=== PATIENT | male | born 1945 | race Caucasian/White ===

== ENCOUNTER 2018-11-05 12:32 | Emergency (ER) | payer MEDICAID, MEDICARE ==
[~2018-11-05] VITALS: Ht 167.6 cm; Wt 76.0 kg
[~2018-11-05 12:32] MED LIST: AMLO5TAB88 PO; ASPI-1393 PO; ATOR80TA PO; CARV6.2548 PO; DIFL5DRO BOTHEYE; FINA5TAB11 PO; HYDR-4135 PO; INSLAN SQ; INSU100C6; ISOS20TA57 PO; OFLO5DRO OP; SUCR500T PO; TAMS-11 PO; TRAM50TA PO
[2018-11-05 13:22] VITALS: BP 150/56
[2018-11-05 14:25] LABS: HEMOGLOBIN. 9.7 g/dL (14.0-18.0); MEAN CORPUSCULAR HEMOGLOBIN 32.5 pg (28.0-32.0); MEAN CORPUSCULAR VOLUME 97.1 fL (80.0-94.0); MEAN PLATELET VOLUME 8.1 fl (7.4-10.4); PLATELET 204 x1000/uL (130-400); RED BLOOD CELL COUNT 2.99 mill/uL (4.7-6.1); RED CELL DISTRIBUTION WIDTH 17.9 % (11.6-14.6)
[2018-11-05 14:28] LABS: CHLORIDE 111 mEq/L (98-107)
[2018-11-05 14:30] LABS: PROTHROMBIN TIME 10.5 sec (9.6-11.0)
[2018-11-05] MEDS ORDERED: ASPIRIN 325MG TABLET PO ONE (15:15)
[2018-11-05 15:16] LABS: PLATELET ESTIMATE NORMAL
== END 2018-11-05 16:08 | disposition left against medical advice (07) ==
LOC: ER 12:32 → CANBEDREQ 17:36
DX: G45.9 Transient cerebral ischemic attack, unspecified (principal); I12.0 Hypertensive chronic kidney disease with stage 5 chronic kidney disease or end stage renal disease; N28.9 Disorder of kidney and ureter, unspecified; N18.6 End stage renal disease; Z99.2 Dependence on renal dialysis; E11.22 Type 2 diabetes mellitus with diabetic chronic kidney disease; Z79.4 Long term (current) use of insulin; Z79.82 Long term (current) use of aspirin
CPT/HCPCS: 36415; 71045; 83880; 84484; 93005; 99284

== ENCOUNTER 2018-12-02 09:11 | Emergency (ER) | payer MEDICARE, MEDICAID ==
[~2018-12-02] VITALS: Ht 172.7 cm; Wt 86.0 kg
[2018-12-02] MEDS ORDERED: DEXTROSE 50% WATER 50ML SYRINGE IV ONE ×2 (09:21→09:30)
[2018-12-02 09:50] LABS: HEMATOCRIT. 32.5 % (42.0-52.0); HEMOGLOBIN. 10.7 g/dL (14.0-18.0); MEAN CORPUSCULAR HEMOGLOBIN 32.6 pg (28.0-32.0); MEAN CORPUSCULAR VOLUME 98.9 fL (80.0-94.0); MEAN PLATELET VOLUME 7.9 fl (7.4-10.4); PLATELET 309 x1000/uL (130-400); RED BLOOD CELL COUNT 3.29 mill/uL (4.7-6.1); RED CELL DISTRIBUTION WIDTH 17.5 % (11.6-14.6)
[2018-12-02 09:57] LABS: CHLORIDE 109 mEq/L (98-107)
[2018-12-02 10:22] LABS: PLATELET ESTIMATE NORMAL
[2018-12-02] MEDS ORDERED: ASPIRIN 325MG EC TABLET PO ONE (11:00)
[2018-12-02] MEDS ORDERED: MAGNESIUM/ALUMINUM HYDROXIDE/SIMETHICONE 30ML UDC PO PRN (14:30)
[2018-12-02] MEDS ORDERED: ACETAMINOPHEN 650MG SUPP PR PRN (14:30)
[2018-12-02] MEDS ORDERED: DEXTROSE 50% WATER 50ML SYRINGE IV PRN (14:30)
[2018-12-02] MEDS ORDERED: GUAIFENESIN 200MG/10ML SUGAR FREE UDC PO PRN (14:30)
[2018-12-02] MEDS ORDERED: CLONIDINE 0.1MG TABLET PO PRN (14:30)
[2018-12-02] MEDS ORDERED: ENOXAPARIN 40MG/0.4ML SYR SUBCUT SCH (14:30)
[2018-12-02] MEDS ORDERED: ONDANSETRON HCL 4MG/2ML INJ IV PRN (14:30)
[2018-12-02] MEDS ORDERED: ACETAMINOPHEN 325MG TABLET PO PRN (14:30)
[2018-12-02] MEDS ORDERED: DIPHENHYDRAMINE 50MG/ML VIAL IV PRN (14:30)
[2018-12-02] MEDS ORDERED: ACETAMINOPHEN 650MG/20.3ML UDC GT PRN (14:30)
[2018-12-02] MEDS ORDERED: IPRATROPIUM/ALBUTEROL 0.5-3(2.5)MG/3ML NEB INH PRN (14:30)
[2018-12-02] MEDS ORDERED: DOCUSATE SODIUM 100MG CAPSULE PO PRN (14:30)
[2018-12-02] MEDS ORDERED: NA PHOS,M-B/NA PHOS,DI-BA ENEMA 118ML PR PRN (14:30)
[2018-12-02 15:54] VITALS: BP 151/66
[2018-12-02] MEDS ORDERED: BLOOD SUGAR DIAGNOSTIC STRIP TEST SCH (17:00)
[2018-12-02] MEDS ORDERED: INSULIN LISPRO 100 UNITS/ML SUBCUT SCH (18:20)
[2018-12-02] MEDS ORDERED: SODIUM CHLORIDE 0.9% INJ 3ML FLUSH IVF SCH (22:00)
== END 2018-12-02 15:58 | disposition left against medical advice (07) ==
LOC: ER 09:11 → EDBEDREQTM 14:02 → EDBEDREQ 14:02 → ENRESERV 15:28 → CANRESERV 15:28 → ER 15:58 → CANBEDREQ 16:08
DX: E11.649 Type 2 diabetes mellitus with hypoglycemia without coma (principal); R55 Syncope and collapse; N28.9 Disorder of kidney and ureter, unspecified; I48.91 Unspecified atrial fibrillation; I12.0 Hypertensive chronic kidney disease with stage 5 chronic kidney disease or end stage renal disease; E11.22 Type 2 diabetes mellitus with diabetic chronic kidney disease; N18.6 End stage renal disease; Z99.2 Dependence on renal dialysis; Z79.899 Other long term (current) drug therapy; Z79.4 Long term (current) use of insulin; Z79.82 Long term (current) use of aspirin
CPT/HCPCS: 36415; 71045; 82962; 84484; 93005; 96374; 99284

== ENCOUNTER 2021-04-09 16:10 | Emergency (ER) | payer MEDICARE, MEDICAID ==
[~2021-04-09] VITALS: Ht 170.2 cm; Wt 100.0 kg
[~2021-04-09 16:10] MED LIST changes: -ASPI-1393 PO; +ASPI-1497 PO
[2021-04-09 16:53] VITALS: BP 138/54
[2021-04-09] MEDS ORDERED: SULF1TAB48 MT (16:59)
== END 2021-04-09 17:21 | disposition home or self-care (01) ==
LOC: ER 16:10
DX: L03.213 Periorbital cellulitis (principal); I48.91 Unspecified atrial fibrillation; I12.0 Hypertensive chronic kidney disease with stage 5 chronic kidney disease or end stage renal disease; E11.22 Type 2 diabetes mellitus with diabetic chronic kidney disease; N18.6 End stage renal disease; Z99.2 Dependence on renal dialysis; Z79.4 Long term (current) use of insulin; Z94.0 Kidney transplant status; Z95.0 Presence of cardiac pacemaker; Z91.040 Latex allergy status
CPT/HCPCS: 99283

== ENCOUNTER 2021-04-29 11:13 | Inpatient (IN) | payer MEDICARE, MEDICAID ==
[~2021-04-29] VITALS: Ht 167.6 cm; Wt 94.8 kg
[~2021-04-29 11:13] MED LIST changes: +SULF1TAB48 MT
[2021-04-29 12:19] LABS: BASOPHILS % 0.4 % (0.0-2.0); EOSINOPHILS % 0.9 % (0.0-5.0); HEMATOCRIT. 27.5 % (42.0-52.0); HEMOGLOBIN. 9.1 g/dL (14.0-18.0); LYMPHOCYTES % 7.1 % (20.0-50.0); MEAN CORPUSCULAR HEMOGLOBIN 32.6 pg (28.0-32.0); MEAN CORPUSCULAR VOLUME 98.6 fL (80.0-94.0); MEAN PLATELET VOLUME 9.6 fl (7.4-10.4); MONOCYTES % 7.7 % (2.0-8.0); NEUTROPHILS % 83.9 % (40.0-76.0); PLATELET 118 x1000/uL (130-400); RED BLOOD CELL COUNT 2.79 mill/uL (4.7-6.1); RED CELL DISTRIBUTION WIDTH 15.6 % (11.6-14.6)
[2021-04-29 12:25] LABS: CHLORIDE 108 mEq/L (98-107)
[2021-04-29 16:09] LABS: CLARITY URINE CLEAR (CLEAR); COLOR URINE YELLOW (YELLOW); KETONES URINE NEGATIVE (NEGATIVE); LEUKOCYTE ESTERASE URINE NEGATIVE (NEGATIVE); NITRITE URINE NEGATIVE (NEGATIVE); OCCULT BLOOD URINE NEGATIVE (NEGATIVE); PROTEIN URINE TRACE (NEGATIVE); SPECIFIC GRAVITY URINE 1.015 (1.005-1.030); UROBILINOGEN URINE 0.2 E.U./dL (0.2-1.0)
[2021-04-29] MEDS ORDERED: FUROSEMIDE 40MG/4ML VIAL IVP ONE (16:15)
[2021-04-29] MEDS ORDERED: ACETAMINOPHEN 325MG TABLET PO PRN (18:15)
[2021-04-29] MEDS ORDERED: HYDRALAZINE 20MG/ML VIAL IV PRN (18:15)
[2021-04-29] MEDS ORDERED: DIPHENHYDRAMINE 50MG/ML VIAL IV PRN (18:15)
[2021-04-29] MEDS ORDERED: ONDANSETRON HCL 4MG/2ML INJ IV PRN (18:15)
[2021-04-29] MEDS ORDERED: CLONIDINE 0.1MG TABLET PO PRN (18:15)
[2021-04-29] MEDS ORDERED: LORAZEPAM 2MG/ML CPJ IV PRN (18:15)
[2021-04-29] MEDS ORDERED: GUAIFENESIN 200MG/10ML SUGAR FREE UDC PO PRN (18:15)
[2021-04-29] MEDS ORDERED: IPRATROPIUM/ALBUTEROL 0.5-3(2.5)MG/3ML NEB HHN PRN (18:15)
[2021-04-29] MEDS ORDERED: MORPHINE SULFATE 2 MG/ML CPJ (NOT FOR IM USE) IV PRN (18:15)
[2021-04-29] MEDS ORDERED: DOCUSATE SODIUM 100MG CAPSULE PO PRN (18:15)
[2021-04-29] MEDS ORDERED: MAGNESIUM/ALUMINUM HYDROXIDE/SIMETHICONE 30ML UDC PO PRN (18:15)
[2021-04-29] MEDS ORDERED: HYDROCODONE/ACETAMINOPHEN 5/325MG TABLET PO PRN (18:15)
[2021-04-29] MEDS ORDERED: NALOXONE HCL 0.4MG/ML VIAL IV PRN (18:45)
[2021-04-29] MEDS ORDERED: ENOXAPARIN 30MG/0.3ML SYR SUBCUT SCH (21:00)
[2021-04-29] MEDS: SODIUM CHLORIDE 0.9% INJ 3ML FLUSH IVF SCH (22:02)
[2021-04-29 23:30] VITALS: BP 135/48
[2021-04-30 04:00] VITALS: BP 136/51
[2021-04-30] MEDS: SODIUM CHLORIDE 0.9% INJ 3ML FLUSH IVF SCH (05:29)
[2021-04-30 06:16] LABS: BASOPHILS % 0.6 % (0.0-2.0); EOSINOPHILS % 1.5 % (0.0-5.0); HEMATOCRIT. 26.2 % (42.0-52.0); HEMOGLOBIN. 8.7 g/dL (14.0-18.0); LYMPHOCYTES % 13.2 % (20.0-50.0); MEAN CORPUSCULAR HEMOGLOBIN 32.6 pg (28.0-32.0); MEAN CORPUSCULAR VOLUME 98.5 fL (80.0-94.0); MONOCYTES % 11.6 % (2.0-8.0); NEUTROPHILS % 73.1 % (40.0-76.0); PLATELET 118 x1000/uL (130-400); RED BLOOD CELL COUNT 2.66 mill/uL (4.7-6.1); RED CELL DISTRIBUTION WIDTH 15.5 % (11.6-14.6)
[2021-04-30 06:27] LABS: CHLORIDE 109 mEq/L (98-107)
[2021-04-30] MEDS ORDERED: PRED5TAB MT (08:08)
[2021-04-30] MEDS ORDERED: FUROSEMIDE 40MG/4ML VIAL IVP SCH (09:00)
[2021-04-30] MEDS ORDERED: FOLIC ACID/VITAMIN B COMP W-C TABLET PO SCH (09:00)
[2021-04-30] MEDS ORDERED: APIXABAN 5 MG TABLET PO SCH (09:00)
[2021-04-30] MEDS ORDERED: SODIUM BICARBONATE 650 MG TABLET PO SCH (09:00)
[2021-04-30] MEDS ORDERED: THIAMINE HCL 100MG TABLET PO SCH (09:00)
[2021-04-30] MEDS ORDERED: CARVEDILOL 6.25 MG TABLET PO SCH (09:00)
[2021-04-30] MEDS ORDERED: ISOSORBIDE MONONITRATE 30MG TABLET SR 24HR PO SCH (09:00)
[2021-04-30] MEDS ORDERED: PREDNISONE 5MG TABLET PO SCH (09:30)
[2021-04-30 10:23] LABS: T4 FREE 1.05 ng/dL (0.76-1.46)
[2021-04-30] MEDS ORDERED: HYDRALAZINE HCL 50MG TABLET PO SCH (14:00)
[2021-04-30] MEDS ORDERED: ATORVASTATIN CALCIUM 20MG TABLET PO SCH (21:00)
[2021-04-30] MEDS ORDERED: NIFEDIPINE XL 60MG TAB PO SCH (21:00)
[2021-05-01] MEDS ORDERED: TACROLIMUS 1MG CAPSULE PO SCH (09:30)
== END 2021-04-30 12:00 | disposition left against medical advice (07) | DRG 291 ==
LOC: ER 11:13 → 5WST 17:42 → EDBEDREQ 17:45 → EDBEDREQTM 17:45 → MICUSO 22:27 → 8WST 22:47
PROVIDERS: ADMIT Internal Medicine; ATTEND Internal Medicine
DX: I13.0 Hypertensive heart and chronic kidney disease with heart failure and stage 1 through stage 4 chronic kidney disease, or unspecified chronic kidney disease (principal); J96.00 Acute respiratory failure, unspecified whether with hypoxia or hypercapnia; I50.33 Acute on chronic diastolic (congestive) heart failure; T86.19 Other complication of kidney transplant; E44.1 Mild protein-calorie malnutrition; N17.9 Acute kidney failure, unspecified; Z20.822 Contact with and (suspected) exposure to COVID-19; D64.9 Anemia, unspecified; E87.5 Hyperkalemia; E78.5 Hyperlipidemia, unspecified; E11.22 Type 2 diabetes mellitus with diabetic chronic kidney disease; I48.91 Unspecified atrial fibrillation; R91.8 Other nonspecific abnormal finding of lung field; Z53.29 Procedure and treatment not carried out because of patient's decision for other reasons; Y83.0 Surgical operation with transplant of whole organ as the cause of abnormal reaction of the patient, or of later complication, without mention of misadventure at the time of the procedure; N18.9 Chronic kidney disease, unspecified; Z68.33 Body mass index [BMI] 33.0-33.9, adult; Y92.89 Other specified places as the place of occurrence of the external cause; Z91.041 Radiographic dye allergy status; Z91.040 Latex allergy status; Z79.899 Other long term (current) drug therapy; Z79.82 Long term (current) use of aspirin; Z95.0 Presence of cardiac pacemaker
CPT/HCPCS: 36415; 71045; 80053; 80061; 81003; 82962; 83036; 83880; 84439; 84443; 84484; 85025; 87426; 93005; 93306; 99285; J1650; J1940; J7512

== ENCOUNTER 2021-09-15 08:29 | Inpatient (IN) | payer MEDICARE, MEDICAID ==
[~2021-09-15] VITALS: Ht 167.6 cm; Wt 86.4 kg
[2021-09-15] VITALS (28 sets, daily range): BP systolic 94–128; BP diastolic 34–85
[~2021-09-15 08:29] MED LIST changes: +PRED5TAB MT
[2021-09-15] MEDS ORDERED: PROPOFOL 10MG/ML 100ML 100 ML IV ONE (08:45)
[2021-09-15] MEDS ORDERED: SUCCINYLCHOLINE CHLORIDE 200MG/10ML IV ONE (08:45)
[2021-09-15] MEDS ORDERED: FENTANYL CITRATE/PF 50MCG/ML 2ML VIAL IV ONE ×2 (08:45→09:15)
[2021-09-15] MEDS ORDERED: ETOMIDATE 2MG/ML 10ML VIAL IV ONE (08:45)
[2021-09-15 09:06] LABS: INR 1.3; PROTHROMBIN TIME 13.8 sec (9.6-11.0)
[2021-09-15 09:07] LABS: CHLORIDE 113 mEq/L (98-107)
[2021-09-15] MEDS ORDERED: MIDAZOLAM 100MG/100ML PMX 100 ML IV SCH ×2 (09:11→09:45)
[2021-09-15 09:15] LABS: HEMATOCRIT. 25.9 % (42.0-52.0); HEMOGLOBIN. 8.6 g/dL (14.0-18.0); MEAN CORPUSCULAR HEMOGLOBIN 31.9 pg (28.0-32.0); MEAN CORPUSCULAR VOLUME 96.3 fL (80.0-94.0); MEAN PLATELET VOLUME 8.2 fl (7.4-10.4); PLATELET 152 x1000/uL (130-400); RED BLOOD CELL COUNT 2.69 mill/uL (4.7-6.1); RED CELL DISTRIBUTION WIDTH 16.3 % (11.6-14.6)
[2021-09-15] MEDS ORDERED: MIDAZOLAM HCL 100 MG in DEXT 5% WATER 80 ML IV ONE (09:15)
[2021-09-15 09:16] LABS: ETHANOL BLOOD < 10 mg/dL
[2021-09-15] MEDS ORDERED: PIPERACILLIN/TAZ 3.375G PREMIX 50 ML IV ONE (09:30)
[2021-09-15] MEDS ORDERED: VANCOMYCIN 1G PREMIX 200 ML IV ONE (09:30)
[2021-09-15 09:44] LABS: PLATELET ESTIMATE NORMAL
[2021-09-15] MEDS ORDERED: SODIUM CHLORIDE 0.9% 1000ML BAG (SEPSIS BOLUS) IV ONE (09:45)
[2021-09-15 09:56] LABS: BG BASE EXCESS -10.1 mmol/L (-2.0-2.0); BG CARBOXYHEMOGLOBIN 0.3 % (0.5-1.5); BG DEOXYHEMOGLOBIN 1.3 % (0.0-5.0); BG FRACTION INSPIRED OXYGEN 100; BG HCO3 ACT 14.6 mmol/L (22.0-26.0); BG METHEMOGLOBIN 0.3 % (0.0-1.5); BG OXYGEN SATURATION 98.7 % (92.0-98.5); BG OXYHEMOGLOBIN 98.1 % (94.0-97.0); BG PCO2 27.8 mmHg (35.0-45.0); BG PH 7.337 (7.350-7.450); BG PO2 252.3 mmHg (75.0-100.0); BG SAMPLE SITE RIGHT BRACHIAL; BG TOTAL HEMOGLOBIN 9.1 g/dL (12.0-18.0); BG VENT MODE VENT - AC
[2021-09-15] MEDS ORDERED: PIPERACILLIN/TAZ 3.375G PREMIX 50 ML IV NR (10:15)
[2021-09-15] MEDS ORDERED: DEXTROSE 50% WATER 50ML SYRINGE IV PRN ×2 (10:30)
[2021-09-15] MEDS ORDERED: VANCOMYCIN 750MG PMX (XELLIA) 150 ML IV NR (10:30)
[2021-09-15] MEDS ORDERED: LIDOCAINE HCL 1% 20ML VIAL (Pyxis) INJ ONE (11:00)
[2021-09-15] MEDS ORDERED: CEFEPIME 1,000 MG in DEXTROSE 5% WATER 50 ML IV SCH (11:00)
[2021-09-15] MEDS ORDERED: METRONIDAZOLE 500 MG PREMIX 100 ML IV SCH (11:00)
[2021-09-15] MEDS ORDERED: PHENYLEPHRINE 50 MG in DEXT 5% WATER 245 ML IV PRN ×4 (11:15)
[2021-09-15] MEDS: PANTOPRAZOLE SODIUM 40 MG/VIAL IV SCH (12:07)
[2021-09-15] MEDS: DEXT 5%/0.45% NACL 1000ML 1,000 ML IV SCH (12:20)
[2021-09-15] MEDS ORDERED: ACETAMINOPHEN 650MG SUPP PR PRN (12:45)
[2021-09-15] MEDS ORDERED: ONDANSETRON HCL 4MG/2ML INJ IV PRN (12:45)
[2021-09-15] MEDS ORDERED: NOREPINEPHRINE 8MG/250ML PMX 250 ML IV PRN ×3 (13:30→13:45)
[2021-09-15] MEDS: IPRATROPIUM/ALBUTEROL 0.5-3(2.5)MG/3ML NEB HHN SCH ×2 (14:15→20:22)
[2021-09-15 15:43] LABS: CLARITY URINE TURBID (CLEAR); COLOR URINE ORANGE (YELLOW); KETONES URINE TRACE (NEGATIVE); LEUKOCYTE ESTERASE URINE 3+ (NEGATIVE); NITRITE URINE NEGATIVE (NEGATIVE); OCCULT BLOOD URINE 3+ (NEGATIVE); PH URINE 8.5 (4.5-8.0); PROTEIN URINE 3+ (NEGATIVE); SPECIFIC GRAVITY URINE 1.015 (1.005-1.030)
[2021-09-15 16:07] LABS: *AMPHETAMINES SCREEN URINE NEGATIVE (NEGATIVE); *BARBITURATES SCREEN URINE NEGATIVE (NEGATIVE); *BENZODIAZEPINES SCREEN URINE NEGATIVE (NEGATIVE); *COCAINE SCREEN URINE NEGATIVE (NEGATIVE); CANNABINOID URINE SCREEN NEGATIVE (NEGATIVE); METHADONE URINE SCREEN NEGATIVE (NEGATIVE); OPIATES URINE SCREEN NEGATIVE (NEGATIVE); PHENCYCLIDINE URINE SCREEN NEGATIVE (NEGATIVE)
[2021-09-15] MEDS ORDERED: NOREPINEPHRINE 8 MG in DEXTROSE 5% WATER 250 ML IV PRN (22:00)
[2021-09-15] MEDS: BLOOD SUGAR DIAGNOSTIC STRIP TEST SCH (23:15)
[2021-09-16] VITALS (96 sets, daily range): BP systolic 85–161; BP diastolic 26–107
[2021-09-16] MEDS: METRONIDAZOLE 500 MG PREMIX 100 ML IV SCH ×3 (00:16→23:34)
[2021-09-16] MEDS ORDERED: PHENYLEPHRINE 100 MG in DEXT 5% WATER 240 ML IV PRN (02:15)
[2021-09-16] MEDS: IPRATROPIUM/ALBUTEROL 0.5-3(2.5)MG/3ML NEB HHN SCH ×4 (02:19→19:57)
[2021-09-16] MEDS: DEXT 5%/0.45% NACL 1000ML 1,000 ML IV SCH (05:43)
[2021-09-16 06:38] LABS: HEMATOCRIT. 29.6 % (42.0-52.0); HEMOGLOBIN. 9.7 g/dL (14.0-18.0); MEAN CORPUSCULAR VOLUME 97.3 fL (80.0-94.0); MEAN PLATELET VOLUME 8.9 fl (7.4-10.4); PLATELET 108 x1000/uL (130-400); RED BLOOD CELL COUNT 3.04 mill/uL (4.7-6.1); RED CELL DISTRIBUTION WIDTH 16.1 % (11.6-14.6)
[2021-09-16 07:08] LABS: CHLORIDE 110 mEq/L (98-107)
[2021-09-16 07:16] LABS: PHOSPHORUS 4.9 mg/dL (2.5-4.9)
[2021-09-16 08:21] LABS: BG BASE EXCESS -11.5 mmol/L (-2.0-2.0); BG CARBOXYHEMOGLOBIN 0.3 % (0.5-1.5); BG DEOXYHEMOGLOBIN 1.9 % (0.0-5.0); BG FRACTION INSPIRED OXYGEN 50; BG HCO3 ACT 12.8 mmol/L (22.0-26.0); BG METHEMOGLOBIN 0.1 % (0.0-1.5); BG OXYGEN SATURATION 98.1 % (92.0-98.5); BG OXYHEMOGLOBIN 97.7 % (94.0-97.0); BG PH 7.328 (7.350-7.450); BG PO2 139.1 mmHg (75.0-100.0); BG SAMPLE SITE RIGHT BRACHIAL; BG TOTAL HEMOGLOBIN 11.1 g/dL (12.0-18.0); BG VENT MODE VENT - AC
[2021-09-16 08:44] LABS: PLATELET ESTIMATE SLIGHTL
[2021-09-16] MEDS: TAMSULOSIN HCL 0.4MG SR CAPSULE PO SCH (09:27)
[2021-09-16] MEDS: PANTOPRAZOLE SODIUM 40 MG/VIAL IV SCH (09:27)
[2021-09-16] MEDS ORDERED: SODIUM BICARBONATE 8.4% 1 MEQ/ML 50ML SYR IV NR (09:45)
[2021-09-16] MEDS: BLOOD SUGAR DIAGNOSTIC STRIP TEST SCH ×3 (11:00→18:00)
[2021-09-16] MEDS: CEFEPIME 1,000 MG in DEXTROSE 5% WATER 50 ML IV SCH (11:23)
[2021-09-16] MEDS: SODIUM BICARBONATE 100 MEQ in DEXTROSE 5% WATER 1,000 ML IV SCH (11:23)
[2021-09-16] MEDS: MIDODRINE HCL 5MG TABLET PO SCH ×2 (13:00→17:00)
[2021-09-16] MEDS ORDERED: DEXTROSE 50% WATER 50ML SYRINGE IV PRN ×2 (13:30→16:00)
[2021-09-16] MEDS ORDERED: VANCOMYCIN 500 MG in DEXT 5% WATER 100 ML IV NR (15:00)
[2021-09-16] MEDS ORDERED: INSULIN LISPRO 100 UNITS/ML SUBCUT SCH (17:00)
[2021-09-16] MEDS: INSULIN LISPRO 100 UNITS/ML SUBCUT SCH (18:12)
[2021-09-16] MEDS: VANCOMYCIN 1000MG/20ML ORAL SOLN PO SCH (18:12)
[2021-09-16] MEDS ORDERED: PROPOFOL 10MG/ML 100ML 100 ML IV PRN (20:15)
[2021-09-16] MEDS ORDERED: EPOETIN ALFA-EPBX 10,000 UNIT/ML VIAL SUBCUT NR (21:00)
[2021-09-16] MEDS: FINASTERIDE 5MG TABLET NG SCH (22:25)
[2021-09-17] VITALS (43 sets, daily range): BP systolic 103–174; BP diastolic 31–123
[2021-09-17] MEDS: BLOOD SUGAR DIAGNOSTIC STRIP TEST SCH ×4 (00:14→17:20)
[2021-09-17] MEDS: VANCOMYCIN 1000MG/20ML ORAL SOLN PO SCH ×4 (01:13→17:20)
[2021-09-17] MEDS: IPRATROPIUM/ALBUTEROL 0.5-3(2.5)MG/3ML NEB HHN SCH ×4 (01:14→20:39)
[2021-09-17 06:25] LABS: HEMATOCRIT. 25.9 % (42.0-52.0); HEMOGLOBIN. 8.8 g/dL (14.0-18.0); MEAN CORPUSCULAR HEMOGLOBIN 32.3 pg (28.0-32.0); MEAN CORPUSCULAR VOLUME 95.5 fL (80.0-94.0); MEAN PLATELET VOLUME 9.5 fl (7.4-10.4); PLATELET 96 x1000/uL (130-400); RED BLOOD CELL COUNT 2.71 mill/uL (4.7-6.1); RED CELL DISTRIBUTION WIDTH 16.1 % (11.6-14.6)
[2021-09-17] MEDS: INSULIN LISPRO 100 UNITS/ML SUBCUT SCH ×4 (06:47→17:21)
[2021-09-17 07:02] LABS: PHOSPHORUS 4.5 mg/dL (2.5-4.9)
[2021-09-17 07:57] LABS: PLATELET ESTIMATE DECREASED
[2021-09-17 09:10] LABS: BG BASE EXCESS -4.6 mmol/L (-2.0-2.0); BG CARBOXYHEMOGLOBIN 0.3 % (0.5-1.5); BG DEOXYHEMOGLOBIN 6.3 % (0.0-5.0); BG FRACTION INSPIRED OXYGEN 30; BG HCO3 ACT 18.1 mmol/L (22.0-26.0); BG METHEMOGLOBIN 0.1 % (0.0-1.5); BG OXYGEN SATURATION 93.7 % (92.0-98.5); BG OXYHEMOGLOBIN 93.3 % (94.0-97.0); BG PCO2 25.4 mmHg (35.0-45.0); BG PO2 68.5 mmHg (75.0-100.0); BG SAMPLE SITE RIGHT RADIAL; BG TOTAL HEMOGLOBIN 8.9 g/dL (12.0-18.0); BG VENT MODE VENT - AC
[2021-09-17] MEDS: PANTOPRAZOLE SODIUM 40 MG/VIAL IV SCH (09:11)
[2021-09-17] MEDS: TAMSULOSIN HCL 0.4MG SR CAPSULE PO SCH (09:11)
[2021-09-17] MEDS: MIDODRINE HCL 5MG TABLET PO SCH ×3 (09:11→17:20)
[2021-09-17] MEDS: SODIUM BICARBONATE 100 MEQ in DEXTROSE 5% WATER 1,000 ML IV SCH (11:43)
[2021-09-17] MEDS: CEFEPIME 1,000 MG in DEXTROSE 5% WATER 50 ML IV SCH (11:49)
[2021-09-17] MEDS ORDERED: VANCOMYCIN 1GM PMX (XELLIA) 200 ML IV NR (12:30)
[2021-09-17] MEDS: METRONIDAZOLE 500 MG PREMIX 100 ML IV SCH (12:51)
[2021-09-17] MEDS: ASPIRIN 81MG TABLET PO SCH (13:41)
[2021-09-17] MEDS ORDERED: POTASSIUM CHLORIDE 20MEQ/PACKET PO ONE (21:00)
[2021-09-17] MEDS ORDERED: KCL 20MEQ/100ML PREMIX 100 ML IV NR (21:00)
[2021-09-17] MEDS: SODIUM CHLORIDE 0.9% 1,000 ML IV SCH (21:12)
[2021-09-17] MEDS: FINASTERIDE 5MG TABLET NG SCH (21:12)
[2021-09-17] MEDS: HYDRALAZINE 20MG/ML VIAL IV PRN (21:12)
[2021-09-18] VITALS (29 sets, daily range): BP systolic 132–181; BP diastolic 37–117
[2021-09-18] MEDS: BLOOD SUGAR DIAGNOSTIC STRIP TEST SCH ×5 (00:18→23:22)
[2021-09-18] MEDS: METRONIDAZOLE 500 MG PREMIX 100 ML IV SCH ×3 (00:28→23:22)
[2021-09-18] MEDS: VANCOMYCIN 1000MG/20ML ORAL SOLN PO SCH ×5 (00:28→23:22)
[2021-09-18] MEDS: INSULIN LISPRO 100 UNITS/ML SUBCUT SCH ×5 (00:29→23:34)
[2021-09-18] MEDS: IPRATROPIUM/ALBUTEROL 0.5-3(2.5)MG/3ML NEB HHN SCH ×4 (01:45→20:46)
[2021-09-18] MEDS: HYDRALAZINE 20MG/ML VIAL IV PRN ×3 (04:26→22:47)
[2021-09-18 05:21] LABS: HEMATOCRIT. 27.7 % (42.0-52.0); HEMOGLOBIN. 9.3 g/dL (14.0-18.0); MEAN CORPUSCULAR VOLUME 95.1 fL (80.0-94.0); MEAN PLATELET VOLUME 9.5 fl (7.4-10.4); PLATELET 93 x1000/uL (130-400); RED BLOOD CELL COUNT 2.91 mill/uL (4.7-6.1); RED CELL DISTRIBUTION WIDTH 16.3 % (11.6-14.6)
[2021-09-18 06:15] LABS: PHOSPHORUS 3.4 mg/dL (2.5-4.9)
[2021-09-18 07:35] LABS: BG BASE EXCESS -3.9 mmol/L (-2.0-2.0); BG DEOXYHEMOGLOBIN 2.2 % (0.0-5.0); BG HCO3 ACT 19.2 mmol/L (22.0-26.0); BG OXYGEN SATURATION 97.8 % (92.0-98.5); BG OXYHEMOGLOBIN 97.8 % (94.0-97.0); BG PH 7.453 (7.350-7.450); BG PO2 117.6 mmHg (75.0-100.0); BG SAMPLE SITE RIGHT RADIAL; BG TOTAL HEMOGLOBIN 9.7 g/dL (12.0-18.0); BG VENT MODE VENT - SIMV
[2021-09-18] MEDS: TAMSULOSIN HCL 0.4MG SR CAPSULE PO SCH (09:01)
[2021-09-18] MEDS: PANTOPRAZOLE SODIUM 40 MG/VIAL IV SCH (09:01)
[2021-09-18] MEDS: ASPIRIN 81MG TABLET PO SCH (09:01)
[2021-09-18] MEDS: MIDODRINE HCL 5MG TABLET PO SCH ×3 (09:02→17:00)
[2021-09-18 10:12] LABS: PLATELET ESTIMATE DECREASED
[2021-09-18] MEDS: CEFEPIME 1,000 MG in DEXTROSE 5% WATER 50 ML IV SCH (11:23)
[2021-09-18] MEDS ORDERED: VANCOMYCIN 1GM PMX (XELLIA) 200 ML IV NR (13:00)
[2021-09-18] MEDS: PREDNISONE 5MG TABLET PO SCH (13:16)
[2021-09-18] MEDS: TACROLIMUS 1MG/PACKET PO SCH ×2 (13:16→21:23)
[2021-09-18] MEDS: SODIUM CHLORIDE 0.9% 1,000 ML IV SCH ×2 (16:30→19:00)
[2021-09-18] MEDS: FINASTERIDE 5MG TABLET NG SCH (21:23)
[2021-09-19] VITALS (42 sets, daily range): BP systolic 125–180; BP diastolic 48–72
[2021-09-19] MEDS: IPRATROPIUM/ALBUTEROL 0.5-3(2.5)MG/3ML NEB HHN SCH ×4 (01:46→20:44)
[2021-09-19 05:43] LABS: HEMATOCRIT. 27.9 % (42.0-52.0); HEMOGLOBIN. 9.4 g/dL (14.0-18.0); MEAN CORPUSCULAR HEMOGLOBIN 31.9 pg (28.0-32.0); MEAN CORPUSCULAR VOLUME 94.6 fL (80.0-94.0); MEAN PLATELET VOLUME 9.9 fl (7.4-10.4); PLATELET 88 x1000/uL (130-400); RED BLOOD CELL COUNT 2.95 mill/uL (4.7-6.1); RED CELL DISTRIBUTION WIDTH 16.2 % (11.6-14.6)
[2021-09-19 06:08] LABS: PHOSPHORUS 2.7 mg/dL (2.5-4.9)
[2021-09-19] MEDS: BLOOD SUGAR DIAGNOSTIC STRIP TEST SCH ×3 (06:25→18:56)
[2021-09-19] MEDS: HYDRALAZINE 20MG/ML VIAL IV PRN ×3 (06:30→17:35)
[2021-09-19] MEDS: VANCOMYCIN 1000MG/20ML ORAL SOLN PO SCH ×3 (06:31→18:50)
[2021-09-19] MEDS: INSULIN LISPRO 100 UNITS/ML SUBCUT SCH ×3 (06:32→18:56)
[2021-09-19 07:48] LABS: PLATELET ESTIMATE DECREASED
[2021-09-19] MEDS: TAMSULOSIN HCL 0.4MG SR CAPSULE PO SCH (08:53)
[2021-09-19] MEDS: PANTOPRAZOLE SODIUM 40 MG/VIAL IV SCH (08:53)
[2021-09-19] MEDS: ASPIRIN 81MG TABLET PO SCH (08:53)
[2021-09-19] MEDS: MIDODRINE HCL 5MG TABLET PO SCH ×3 (08:53→17:35)
[2021-09-19] MEDS: PREDNISONE 5MG TABLET PO SCH (08:55)
[2021-09-19] MEDS: TACROLIMUS 1MG/PACKET PO SCH ×2 (08:55→21:10)
[2021-09-19] MEDS: CEFEPIME 1,000 MG in DEXTROSE 5% WATER 50 ML IV SCH (11:33)
[2021-09-19] MEDS: SODIUM CHLORIDE 0.9% 1,000 ML IV SCH (12:17)
[2021-09-19] MEDS: METRONIDAZOLE 500 MG PREMIX 100 ML IV SCH (12:18)
[2021-09-19] MEDS ORDERED: MIDAZOLAM HCL 2 MG/2 ML VIAL IV NR ×2 (13:45→14:00)
[2021-09-19] MEDS ORDERED: FENTANYL CITRATE/PF 50MCG/ML 2ML VIAL IV NR ×3 (13:45→14:15)
[2021-09-19] MEDS ORDERED: [UNRECOGNIZED DRUG - REMARK] XX SCH (15:45)
[2021-09-19] MEDS ORDERED: CEFTRIAXONE 2 G PREMIX 50 ML IV SCH (15:45)
[2021-09-19 17:43] LABS: BG CARBOXYHEMOGLOBIN 0.3 % (0.5-1.5); BG DEOXYHEMOGLOBIN 2.3 % (0.0-5.0); BG FRACTION INSPIRED OXYGEN 30; BG HCO3 ACT 17.1 mmol/L (22.0-26.0); BG METHEMOGLOBIN 0.3 % (0.0-1.5); BG OXYGEN SATURATION 97.7 % (92.0-98.5); BG OXYHEMOGLOBIN 97.1 % (94.0-97.0); BG PCO2 25.7 mmHg (35.0-45.0); BG PO2 117.4 mmHg (75.0-100.0); BG SAMPLE SITE RIGHT RADIAL; BG TOTAL HEMOGLOBIN 9.3 g/dL (12.0-18.0); BG VENT MODE VENT - CPAP
[2021-09-19] MEDS ORDERED: VANCOMYCIN 1GM PMX (XELLIA) 200 ML IV NR (18:00)
[2021-09-19] MEDS: FINASTERIDE 5MG TABLET NG SCH (21:05)
[2021-09-19] MEDS: INSULIN GLARGINE 100 UNITS/ML SUBCUT SCH (23:19)
[2021-09-20] VITALS (43 sets, daily range): BP systolic 115–179; BP diastolic 32–67
[2021-09-20] MEDS: BLOOD SUGAR DIAGNOSTIC STRIP TEST SCH ×5 (00:56→23:41)
[2021-09-20] MEDS: METRONIDAZOLE 500 MG PREMIX 100 ML IV SCH ×2 (01:05→11:40)
[2021-09-20] MEDS: VANCOMYCIN 1000MG/20ML ORAL SOLN PO SCH ×5 (01:05→23:41)
[2021-09-20] MEDS: INSULIN LISPRO 100 UNITS/ML SUBCUT SCH ×5 (01:06→23:42)
[2021-09-20] MEDS: HYDRALAZINE 20MG/ML VIAL IV PRN ×2 (01:08→22:42)
[2021-09-20] MEDS: IPRATROPIUM/ALBUTEROL 0.5-3(2.5)MG/3ML NEB HHN SCH ×4 (02:13→20:33)
[2021-09-20 06:16] LABS: HEMATOCRIT. 28.4 % (42.0-52.0); HEMOGLOBIN. 9.1 g/dL (14.0-18.0); MEAN PLATELET VOLUME 9.8 fl (7.4-10.4); PLATELET 106 x1000/uL (130-400); RED BLOOD CELL COUNT 2.84 mill/uL (4.7-6.1); RED CELL DISTRIBUTION WIDTH 16.8 % (11.6-14.6)
[2021-09-20 06:29] LABS: PHOSPHORUS 2.6 mg/dL (2.5-4.9)
[2021-09-20 07:38] LABS: PLATELET ESTIMATE DECREASED
[2021-09-20] MEDS: PANTOPRAZOLE SODIUM 40 MG/VIAL IV SCH (09:24)
[2021-09-20] MEDS: ASPIRIN 81MG TABLET PO SCH (09:25)
[2021-09-20] MEDS: PREDNISONE 5MG TABLET PO SCH (09:25)
[2021-09-20] MEDS: TAMSULOSIN HCL 0.4MG SR CAPSULE PO SCH (09:25)
[2021-09-20] MEDS: MIDODRINE HCL 5MG TABLET PO SCH ×3 (09:26→17:00)
[2021-09-20] MEDS: TACROLIMUS 1MG/PACKET PO SCH ×2 (09:29→23:41)
[2021-09-20] MEDS: CEFTRIAXONE 2 G in DEXTROSE 5% WATER 50 ML IV SCH (10:59)
[2021-09-20] MEDS: SODIUM CHLORIDE 0.9% 1,000 ML IV SCH (11:41)
[2021-09-20] MEDS: INSULIN GLARGINE 100 UNITS/ML SUBCUT SCH (22:23)
[2021-09-20] MEDS: FINASTERIDE 5MG TABLET NG SCH (22:23)
[2021-09-21] VITALS (10 sets, daily range): BP systolic 144–196; BP diastolic 45–75
[2021-09-21] MEDS: IPRATROPIUM/ALBUTEROL 0.5-3(2.5)MG/3ML NEB HHN SCH ×4 (00:17→20:16)
[2021-09-21] MEDS: HYDRALAZINE 20MG/ML VIAL IV PRN ×3 (04:44→22:09)
[2021-09-21] MEDS: INSULIN LISPRO 100 UNITS/ML SUBCUT SCH ×3 (05:23→18:01)
[2021-09-21] MEDS: VANCOMYCIN 1000MG/20ML ORAL SOLN PO SCH ×3 (05:24→18:10)
[2021-09-21] MEDS: BLOOD SUGAR DIAGNOSTIC STRIP TEST SCH ×3 (05:24→18:01)
[2021-09-21 05:59] LABS: HEMATOCRIT. 26.2 % (42.0-52.0); HEMOGLOBIN. 8.5 g/dL (14.0-18.0); MEAN CORPUSCULAR HEMOGLOBIN 31.4 pg (28.0-32.0); MEAN CORPUSCULAR VOLUME 96.5 fL (80.0-94.0); MEAN PLATELET VOLUME 9.5 fl (7.4-10.4); PLATELET 132 x1000/uL (130-400); RED BLOOD CELL COUNT 2.72 mill/uL (4.7-6.1); RED CELL DISTRIBUTION WIDTH 16.6 % (11.6-14.6)
[2021-09-21 06:31] LABS: PHOSPHORUS 2.4 mg/dL (2.5-4.9)
[2021-09-21] MEDS: PANTOPRAZOLE SODIUM 40 MG/VIAL IV SCH (08:27)
[2021-09-21] MEDS: ASPIRIN 81MG TABLET PO SCH (08:27)
[2021-09-21] MEDS: TACROLIMUS 1MG/PACKET PO SCH ×2 (08:27→21:47)
[2021-09-21] MEDS: PREDNISONE 5MG TABLET PO SCH (08:27)
[2021-09-21] MEDS: TAMSULOSIN HCL 0.4MG SR CAPSULE PO SCH (08:58)
[2021-09-21] MEDS: MIDODRINE HCL 5MG TABLET PO SCH ×3 (09:00→17:00)
[2021-09-21 10:16] LABS: PLATELET ESTIMATE NORMAL
[2021-09-21] MEDS: CEFTRIAXONE 2 G in DEXTROSE 5% WATER 50 ML IV SCH (12:03)
[2021-09-21] MEDS ORDERED: CLONIDINE 0.1MG TABLET PO PRN (18:15)
[2021-09-21] MEDS: FINASTERIDE 5MG TABLET NG SCH (21:47)
[2021-09-21] MEDS: INSULIN GLARGINE 100 UNITS/ML SUBCUT SCH (21:48)
[2021-09-22] VITALS (11 sets, daily range): BP systolic 135–195; BP diastolic 51–88
[2021-09-22] MEDS: VANCOMYCIN 1000MG/20ML ORAL SOLN PO SCH ×3 (00:55→11:26)
[2021-09-22] MEDS: BLOOD SUGAR DIAGNOSTIC STRIP TEST SCH ×5 (00:55→23:53)
[2021-09-22] MEDS: INSULIN LISPRO 100 UNITS/ML SUBCUT SCH ×5 (00:56→23:53)
[2021-09-22 06:43] LABS: HEMATOCRIT. 26.5 % (42.0-52.0); HEMOGLOBIN. 9.1 g/dL (14.0-18.0); MEAN CORPUSCULAR HEMOGLOBIN 32.4 pg (28.0-32.0); PLATELET 150 x1000/uL (130-400); RED CELL DISTRIBUTION WIDTH 16.4 % (11.6-14.6)
[2021-09-22 08:40] LABS: PHOSPHORUS 2.4 mg/dL (2.5-4.9)
[2021-09-22] MEDS: ASPIRIN 81MG TABLET PO SCH (08:42)
[2021-09-22] MEDS: TACROLIMUS 1MG/PACKET PO SCH ×2 (08:43→21:12)
[2021-09-22] MEDS: PANTOPRAZOLE SODIUM 40 MG/VIAL IV SCH (08:43)
[2021-09-22] MEDS: PREDNISONE 5MG TABLET PO SCH (08:43)
[2021-09-22] MEDS: TAMSULOSIN HCL 0.4MG SR CAPSULE PO SCH (08:45)
[2021-09-22] MEDS: IPRATROPIUM/ALBUTEROL 0.5-3(2.5)MG/3ML NEB HHN SCH ×3 (09:20→20:30)
[2021-09-22] MEDS: CEFTRIAXONE 2 G in DEXTROSE 5% WATER 50 ML IV SCH (11:25)
[2021-09-22] MEDS: HYDRALAZINE 20MG/ML VIAL IV PRN ×2 (11:26→21:33)
[2021-09-22 19:11] LABS: PLATELET ESTIMATE NORMAL
[2021-09-22] MEDS: FINASTERIDE 5MG TABLET NG SCH (21:12)
[2021-09-22] MEDS: INSULIN GLARGINE 100 UNITS/ML SUBCUT SCH (21:32)
[2021-09-23] VITALS (12 sets, daily range): BP systolic 102–177; BP diastolic 42–74
[2021-09-23] MEDS: IPRATROPIUM/ALBUTEROL 0.5-3(2.5)MG/3ML NEB HHN SCH ×4 (00:29→20:28)
[2021-09-23] MEDS: INSULIN LISPRO 100 UNITS/ML SUBCUT SCH ×3 (06:00→18:35)
[2021-09-23 06:34] LABS: HEMATOCRIT. 26.3 % (42.0-52.0); HEMOGLOBIN. 8.9 g/dL (14.0-18.0); MEAN CORPUSCULAR HEMOGLOBIN 32.3 pg (28.0-32.0); MEAN CORPUSCULAR VOLUME 95.5 fL (80.0-94.0); MEAN PLATELET VOLUME 8.7 fl (7.4-10.4); PLATELET 176 x1000/uL (130-400); RED BLOOD CELL COUNT 2.76 mill/uL (4.7-6.1); RED CELL DISTRIBUTION WIDTH 16.5 % (11.6-14.6)
[2021-09-23] MEDS: BLOOD SUGAR DIAGNOSTIC STRIP TEST SCH ×3 (06:54→18:26)
[2021-09-23 07:51] LABS: PHOSPHORUS 2.8 mg/dL (2.5-4.9)
[2021-09-23 10:47] LABS: PLATELET ESTIMATE NORMAL
[2021-09-23] MEDS: PREDNISONE 5MG TABLET PO SCH (11:59)
[2021-09-23] MEDS: CEFTRIAXONE 2 G in DEXTROSE 5% WATER 50 ML IV SCH (11:59)
[2021-09-23] MEDS: TACROLIMUS 1MG/PACKET PO SCH ×2 (11:59→21:24)
[2021-09-23] MEDS: ASPIRIN 81MG TABLET PO SCH (11:59)
[2021-09-23] MEDS: AMLODIPINE 5MG TABLET PO SCH ×2 (12:02→21:24)
[2021-09-23] MEDS: PANTOPRAZOLE SODIUM 40 MG/VIAL IV SCH (12:02)
[2021-09-23] MEDS: HYDRALAZINE HCL 50MG TABLET PO SCH ×2 (16:11→17:00)
[2021-09-23] MEDS: TAMSULOSIN HCL 0.4MG SR CAPSULE PO SCH (16:12)
[2021-09-23] MEDS: FINASTERIDE 5MG TABLET NG SCH (21:24)
[2021-09-23] MEDS: INSULIN GLARGINE 100 UNITS/ML SUBCUT SCH (21:30)
[2021-09-24] VITALS (13 sets, daily range): BP systolic 116–178; BP diastolic 32–93
[2021-09-24] MEDS: BLOOD SUGAR DIAGNOSTIC STRIP TEST SCH ×5 (00:32→23:48)
[2021-09-24] MEDS: INSULIN LISPRO 100 UNITS/ML SUBCUT SCH ×5 (00:32→23:49)
[2021-09-24] MEDS: IPRATROPIUM/ALBUTEROL 0.5-3(2.5)MG/3ML NEB HHN SCH ×4 (02:21→20:48)
[2021-09-24] MEDS: HYDRALAZINE 20MG/ML VIAL IV PRN (04:18)
[2021-09-24 05:29] LABS: HEMATOCRIT. 25.6 % (42.0-52.0); HEMOGLOBIN. 8.5 g/dL (14.0-18.0); MEAN CORPUSCULAR HEMOGLOBIN 31.8 pg (28.0-32.0); MEAN CORPUSCULAR VOLUME 95.3 fL (80.0-94.0); MEAN PLATELET VOLUME 8.5 fl (7.4-10.4); PLATELET 191 x1000/uL (130-400); RED BLOOD CELL COUNT 2.69 mill/uL (4.7-6.1); RED CELL DISTRIBUTION WIDTH 16.4 % (11.6-14.6)
[2021-09-24 06:13] LABS: PHOSPHORUS 2.8 mg/dL (2.5-4.9)
[2021-09-24] MEDS: PREDNISONE 5MG TABLET PO SCH (08:39)
[2021-09-24] MEDS: TACROLIMUS 1MG/PACKET PO SCH ×2 (08:39→21:13)
[2021-09-24] MEDS: ASPIRIN 81MG TABLET PO SCH (08:39)
[2021-09-24] MEDS: TAMSULOSIN HCL 0.4MG SR CAPSULE PO SCH (08:40)
[2021-09-24] MEDS: AMLODIPINE 5MG TABLET PO SCH ×2 (08:40→21:13)
[2021-09-24] MEDS: PANTOPRAZOLE SODIUM 40 MG/VIAL IV SCH (08:40)
[2021-09-24] MEDS: HYDRALAZINE HCL 50MG TABLET PO SCH ×2 (08:42→17:35)
[2021-09-24 11:12] LABS: PLATELET ESTIMATE NORMAL
[2021-09-24] MEDS: CEFTRIAXONE 2 G in DEXTROSE 5% WATER 50 ML IV SCH (11:58)
[2021-09-24] MEDS: CARVEDILOL 6.25 MG TABLET PO SCH ×2 (12:00→17:35)
[2021-09-24] MEDS: VANCOMYCIN 1000MG/20ML ORAL SOLN PO SCH ×2 (17:36→23:50)
[2021-09-24] MEDS: INSULIN GLARGINE 100 UNITS/ML SUBCUT SCH (21:15)
[2021-09-24] MEDS: FINASTERIDE 5MG TABLET NG SCH (21:19)
[2021-09-25] VITALS (11 sets, daily range): BP systolic 90–186; BP diastolic 46–83
[2021-09-25] MEDS: IPRATROPIUM/ALBUTEROL 0.5-3(2.5)MG/3ML NEB HHN SCH ×4 (00:58→20:05)
[2021-09-25] MEDS: BLOOD SUGAR DIAGNOSTIC STRIP TEST SCH ×4 (05:44→23:14)
[2021-09-25] MEDS: INSULIN LISPRO 100 UNITS/ML SUBCUT SCH ×4 (05:44→23:15)
[2021-09-25] MEDS: VANCOMYCIN 1000MG/20ML ORAL SOLN PO SCH ×4 (05:44→23:15)
[2021-09-25 06:17] LABS: HEMATOCRIT. 27.2 % (42.0-52.0); HEMOGLOBIN. 9.2 g/dL (14.0-18.0); MEAN CORPUSCULAR HEMOGLOBIN 32.4 pg (28.0-32.0); MEAN CORPUSCULAR VOLUME 95.6 fL (80.0-94.0); MEAN PLATELET VOLUME 8.9 fl (7.4-10.4); PLATELET 219 x1000/uL (130-400); RED BLOOD CELL COUNT 2.85 mill/uL (4.7-6.1)
[2021-09-25 06:49] LABS: PHOSPHORUS 3.1 mg/dL (2.5-4.9)
[2021-09-25] MEDS: PANTOPRAZOLE SODIUM 40 MG/VIAL IV SCH (08:45)
[2021-09-25] MEDS: PREDNISONE 5MG TABLET PO SCH (08:45)
[2021-09-25] MEDS: TACROLIMUS 1MG/PACKET PO SCH ×2 (08:45→21:22)
[2021-09-25] MEDS: ASPIRIN 81MG TABLET PO SCH (08:45)
[2021-09-25] MEDS: AMLODIPINE 5MG TABLET PO SCH ×2 (08:46→21:22)
[2021-09-25] MEDS: HYDRALAZINE HCL 50MG TABLET PO SCH ×2 (08:47→17:40)
[2021-09-25] MEDS: CARVEDILOL 6.25 MG TABLET PO SCH ×2 (08:47→17:40)
[2021-09-25] MEDS: TAMSULOSIN HCL 0.4MG SR CAPSULE PO SCH (08:47)
[2021-09-25 09:46] LABS: PLATELET ESTIMATE NORMAL
[2021-09-25] MEDS: CEFTRIAXONE 2 G in DEXTROSE 5% WATER 50 ML IV SCH (17:39)
[2021-09-25] MEDS ORDERED: CEFTRIAXONE XX SCH (20:00)
[2021-09-25] MEDS: FINASTERIDE 5MG TABLET NG SCH (21:22)
[2021-09-25] MEDS: INSULIN GLARGINE 100 UNITS/ML SUBCUT SCH (23:17)
[2021-09-26] VITALS (16 sets, daily range): BP systolic 139–168; BP diastolic 30–59
[2021-09-26] MEDS: IPRATROPIUM/ALBUTEROL 0.5-3(2.5)MG/3ML NEB HHN SCH ×4 (01:57→14:21)
[2021-09-26] MEDS: VANCOMYCIN 1000MG/20ML ORAL SOLN PO SCH ×3 (05:56→17:31)
[2021-09-26] MEDS: INSULIN LISPRO 100 UNITS/ML SUBCUT SCH ×3 (06:00→17:43)
[2021-09-26] MEDS: BLOOD SUGAR DIAGNOSTIC STRIP TEST SCH ×3 (06:07→17:43)
[2021-09-26 07:12] LABS: HEMATOCRIT. 26.6 % (42.0-52.0); HEMOGLOBIN. 8.6 g/dL (14.0-18.0); MEAN CORPUSCULAR HEMOGLOBIN 31.1 pg (28.0-32.0); MEAN CORPUSCULAR VOLUME 96.2 fL (80.0-94.0); MEAN PLATELET VOLUME 8.5 fl (7.4-10.4); PLATELET 233 x1000/uL (130-400); RED BLOOD CELL COUNT 2.76 mill/uL (4.7-6.1); RED CELL DISTRIBUTION WIDTH 16.4 % (11.6-14.6)
[2021-09-26 07:36] LABS: PHOSPHORUS 2.7 mg/dL (2.5-4.9)
[2021-09-26] MEDS: CARVEDILOL 6.25 MG TABLET PO SCH ×2 (08:51→17:31)
[2021-09-26] MEDS: PANTOPRAZOLE SODIUM 40 MG/VIAL IV SCH (08:51)
[2021-09-26] MEDS: TAMSULOSIN HCL 0.4MG SR CAPSULE PO SCH (08:51)
[2021-09-26] MEDS: AMLODIPINE 5MG TABLET PO SCH (08:51)
[2021-09-26] MEDS: ASPIRIN 81MG TABLET PO SCH (08:52)
[2021-09-26] MEDS: HYDRALAZINE HCL 50MG TABLET PO SCH ×2 (08:52→17:31)
[2021-09-26] MEDS: PREDNISONE 5MG TABLET PO SCH (08:53)
[2021-09-26] MEDS: TACROLIMUS 1MG/PACKET PO SCH (08:56)
[2021-09-26 10:00] LABS: PLATELET ESTIMATE NORMAL
[2021-09-26 11:04] LABS: BG BASE EXCESS -8.6 mmol/L (-2.0-2.0); BG CARBOXYHEMOGLOBIN 0.3 % (0.5-1.5); BG DEOXYHEMOGLOBIN 7.6 % (0.0-5.0); BG FRACTION INSPIRED OXYGEN 21; BG HCO3 ACT 14.4 mmol/L (22.0-26.0); BG METHEMOGLOBIN 0.3 % (0.0-1.5); BG OXYGEN SATURATION 92.4 % (92.0-98.5); BG OXYHEMOGLOBIN 91.8 % (94.0-97.0); BG PH 7.415 (7.350-7.450); BG PO2 65.6 mmHg (75.0-100.0); BG SAMPLE SITE RIGHT RADIAL; BG TOTAL HEMOGLOBIN 10.1 g/dL (12.0-18.0); BG VENT MODE ROOM AIR
[2021-09-26] MEDS ORDERED: CEFTRIAXONE 2 G in DEXTROSE 5% WATER 50 ML IV SCH (15:00)
[2021-09-26] MEDS: HYDRALAZINE 20MG/ML VIAL IV PRN (18:27)
== END 2021-09-26 18:30 | DRG 870 ==
LOC: ER 08:29 → EDBEDREQTM 08:51 → EDBEDREQ 08:51 → EDBEDREQSVC 08:51 → MICUNO 09:37 → EDBEDREQTM 09:40 → EDBEDREQ 09:40 → 5EST 09-20 20:57
PROVIDERS: ADMIT Hospitalist; ATTEND Hospitalist
PROC: 5A1955Z Respiratory Ventilation, Greater than 96 Consecutive Hours (ICD-10-PCS; principal; 2021-09-15)
PROC: 02HV33Z Insertion of Infusion Device into Superior Vena Cava, Percutaneous Approach (ICD-10-PCS; 2021-09-15)
PROC: B548ZZA Ultrasonography of Superior Vena Cava, Guidance (ICD-10-PCS; 2021-09-15)
PROC: 0BH17EZ Insertion of Endotracheal Airway into Trachea, Via Natural or Artificial Opening (ICD-10-PCS; 2021-09-15)
DX: A41.59 Other Gram-negative sepsis (principal); G93.41 Metabolic encephalopathy; I50.33 Acute on chronic diastolic (congestive) heart failure; J69.0 Pneumonitis due to inhalation of food and vomit; N18.6 End stage renal disease; R65.21 Severe sepsis with septic shock; I21.4 Non-ST elevation (NSTEMI) myocardial infarction; J96.01 Acute respiratory failure with hypoxia; I13.2 Hypertensive heart and chronic kidney disease with heart failure and with stage 5 chronic kidney disease, or end stage renal disease; N39.0 Urinary tract infection, site not specified; N17.9 Acute kidney failure, unspecified; I48.21 Permanent atrial fibrillation; T86.19 Other complication of kidney transplant; N13.8 Other obstructive and reflux uropathy; E11.22 Type 2 diabetes mellitus with diabetic chronic kidney disease; D69.6 Thrombocytopenia, unspecified; E11.649 Type 2 diabetes mellitus with hypoglycemia without coma; D63.8 Anemia in other chronic diseases classified elsewhere; N40.1 Benign prostatic hyperplasia with lower urinary tract symptoms; I49.5 Sick sinus syndrome; E78.5 Hyperlipidemia, unspecified; I27.20 Pulmonary hypertension, unspecified; Z20.822 Contact with and (suspected) exposure to COVID-19; Y83.0 Surgical operation with transplant of whole organ as the cause of abnormal reaction of the patient, or of later complication, without mention of misadventure at the time of the procedure; Z91.041 Radiographic dye allergy status; Z91.040 Latex allergy status; Z79.82 Long term (current) use of aspirin; Z79.899 Other long term (current) drug therapy; Z79.4 Long term (current) use of insulin; Z86.73 Personal history of transient ischemic attack (TIA), and cerebral infarction without residual deficits; Z95.0 Presence of cardiac pacemaker; Z79.01 Long term (current) use of anticoagulants; I25.2 Old myocardial infarction; Y92.89 Other specified places as the place of occurrence of the external cause; Z82.49 Family history of ischemic heart disease and other diseases of the circulatory system
CPT/HCPCS: 36415; 36600; 71045; 74176; 76937; 80048; 80053; 80197; 80202; 80305; 80320; 81003; 82375; 82550; 82805; 82962; 83036; 83605; 83735; 84100; 84145; 84478; 84484; 85025; 86301; 87070; 87077; 87186; 87426; 87493; 93005; 93306; 93970; 94002; 94003; 94640; 97162; 97166; 97530; 99291; C1725; C9113; J0360; J0692; J0696; J0885; J1815; J2250; J2370; J2543; J2704; J3010; J3370; J3480; J3490; J7030; J7060; J7070; J7507; J7512; G0480